=== PATIENT | female | born 1995 | race Two or more races ===

== ENCOUNTER 2024-12-03 18:13 | Emergency (ER) | payer MEDICAID, OTHER ==
[~2024-12-03] VITALS: Ht 160 cm; Wt 95.8 kg
--- NOTE | 2024-12-03 19:35 | ED.PDOC ---
History of Present Illness HPI Comments 29 y/o obese F presents with c/o nausea, vomiting, with associated inability to tolerate fluids, today. Patient states she has been utilizing the Zofran that was prescribed, but it has not been effective. Patient endorses on being advised to come to the ED after calling her surgeon, who performed her gastric bypass on 11/30/24, for IV fluids. She denies any increased abdominal pain, blood in her vomitus, diarrhea, fever, chills, urinary symptoms, or other associated symptoms. Vital signs were stable at arrival. 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 Hx Family History Family History: Unknown Social History Smoker: Non-Smoker Alcohol: Denies ETOH Use Drugs: Denies Drug Use Lives In: Home Constitutional: denies: chills, diaphoresis, fatigue, fever, malaise, sweats, weakness, others EENTM: denies: blurred vision, double vision, ear bleeding, ear discharge, ear drainage, ear pain, ear ringing, eye pain, eye redness, hearing loss, mouth pain, mouth swelling, nasal discharge, nose bleeding, nose congestion, nose pain, photophobia, tearing, throat pain, throat swelling, voice changes, others Respiratory: denies: cough, hemoptysis, orthopnea, SOB at rest, shortness of breath, SOB with excertion, stridor, wheezing, others Cardiovascular: denies: chest pain, dizzy spells, diaphoresis, Dyspnea on exertion, edema, irregular heart beat, left arm pain, lightheadedness, palpitations, PND, syncope, others Gastrointestinal: reports: nausea, vomiting; denies: abdomen distended, abdominal pain, blood streaked bowels, constipated, diarrhea, dysphagia, difficulty swallowing, hematemesis, melena, poor appetite, poor fluid intake, rectal bleeding, rectal pain, others Genitourinary: denies: abnormal vagina bleeding, burning, dyspareunia, dysuria, flank pain, frequency, hematuria, incontinence, pain, , vagina discharge, urgency, others Neurological: denies: dizziness, fainting, headache, left sided numbness, left sided weakness, numbness, paresthesia, pre-existing deficit, right sided numbness, right sided weakness, seizure, speech problems, tingling, tremors, weakness, others Musculoskeletal: denies: back pain, gout, joint pain, joint swelling, muscle pain, muscle stiffness, neck pain, others Integumetry: denies: bruises, change in color, change in hair/nails, dryness, laceration, lesions, lumps, rash, wounds, others Allergic/Immunocompromised: denies: Difficulty Healing, Frequent Infections, Hives, Itching, others Hematologic/Lymphatic: denies: anemia, blood clots, easy bleeding, easy bruising, swollen glands, others Endocrine: denies: excessive hunger, excessive sweating, excessive thirst, excessive urination, flushing, intolerance to cold, intolerance to heat, unexplained weight gain, unexplained weight loss, others Psychiatric: denies: anxiety, bipolar disorder, depression, hopeless, panic disorder, schizophrenia, sleepless, suicidal, others All Other Systems: Reviewed and Negative (as per HPI) Physical Exam General Appearance: Moderate Distress ([id number] distress due to nausea and mild belly pain concerns.), Obese HEENT: Normal ENT Inspection, Pharynx Normal, TMs Normal Neck: Full Range of Motion, Non-Tender, Normal, Normal Inspection Respiratory: Chest Non-Tender, Lungs Clear, No Accessory Muscle Use, No Respiratory Distress, Normal Breath Sounds Cardiovascular: No Edema, No JVD, No Murmur, No Gallop, Normal Peripheral Pulses, Regular Rate/Rhythm Breast Exam: Deferred Gastrointestinal: Other (Patient is status post gastric bypass procedure. Tenderness noted throughout.) Genitalia: Deferred Pelvic: Deferred Rectal: Deferred Extremities: No calf tenderness, Normal capillary refill, Normal inspection, Normal range of motion, Non-tender, No pedal edema Neurologic: Alert, No Motor Deficits, Normal Affect, Normal Mood, No Sensory Deficits Cerebellar Function: Normal Reflexes: Normal Skin: Dry, Normal Color, Warm Lymphatic: No Adenopathy Was a procedure done? Was a procedure done?: No Differential Dx Considerations may include: Postoperative pain, postoperative nausea and vomiting X-Ray, Labs, Meds, VS Vital Signs Date Time Temp Pulse Resp B/P (MAP) Pulse Ox O2 Delivery O2 Flow Rate FiO2 12/03/24 19:45 97.5 92 16 106/66 (79) 95 97.5 12/03/24 19:45 Room Air* 0 21 12/03/24 18:41 97.5 99 20 107/72 (84) 99 97.5 Current Medications Medications (Trade) Dose Ordered Sig/Reyna Route Start Time Stop Time Status Last Admin Metoclopramide HCl (Reglan Tablet) 10 mg ONCE ONCE PO 12/03/24 19:00 12/03/24 19:01 DC 12/03/24 19:54 Sodium Chloride 1,000 ml @ 1,000 mls/hr Q1H ONCE IV 12/03/24 19:00 12/03/24 19:59 DC 12/03/24 20:10 X-Ray, Labs, Meds, VS Comment Patient responded well to the Reglan and IV fluids dispensed. Advised patient to utilize Reglan as needed for symptomatic relief. Advised continue follow up with bariatric surgeon for management postop. Time of 1ST Reevaluation: 21:10 Reevaluation 1ST: Improved Consultation: PCP, Other (Bariatric surgeon) Patient Education/Counseling: Diagnosis, Treatment Family Education/Counseling: Diagnosis, Treatment, No Family Present Departure 1 Departure Time of Disposition: 21:10 Impression: Primary Impression: Nausea and vomiting Disposition: HOME / SELF CARE / HOMELESS Condition: Stable Additional Instructions: Advised that were patient to utilize medication as needed for symptomatic relief. Patient should continued maintaining follow up appointments with bariatric surgeon as scheduled. e-Prescriptions Metoclopramide Hcl (Reglan) 10 Mg Tab 10 MG PO Q6HP PRN, #30 TAB Prov: GUERITA PATEL PAC 12/03/24 Discharged With: Self, Friend Critical Care Note Critical Care Time?: No Stability Stability form required: No Heart Score Heart Score: Heart Score Response (Comments) Value History N/A 0 EKG N/A 0 Age N/A 0 Risk Factors N/A 0 Troponin N/A 0 Total 0 I personally scribed for GUERITA PATEL PAC ([email or web address]) on 12/03/24 at 19:35. Electronically submitted by Tunde Schroeder ([email or web address]). GUERITA PATEL PAC December 03, 2024 19:35
[2024-12-03 19:45] VITALS: BP 106/66; PULSE 92; RESP 16; TEMP 97.5; O2SAT 95
[2024-12-03] MEDS: METOCLOPRAMIDE HCL 10 MG TAB PO ONE (19:54)
[2024-12-03] MEDS: SODIUM CHLORIDE 0.9% 1,000 ML IV ONE (20:10)
[2024-12-03] MEDS ORDERED: METO-281 PO (21:12)
== END 2024-12-03 21:32 | disposition home or self-care (01) ==
LOC: ER 18:13
DX: R11.2 Nausea with vomiting, unspecified (principal); Z98.84 Bariatric surgery status
CPT/HCPCS: 96360; 99283; J7030; J8597